=== PATIENT | female | born 1960 | race African-American/Black ===

== ENCOUNTER 2018-08-15 10:10 | Outpatient (CLI) | payer OTHER ==
--- NOTE | 2018-08-15 10:57 | MMO ---
MAMMOGRAM DIGITAL SCREENING BILATERAL: DATE: 08/15/2018. HISTORY: A 58-year-old female for routine bilateral screening mammogram. COMPARISON: 07/01/2009. TECHNIQUE: Digital mammographic views. Computer-aided detection (CAD) utilized. FINDINGS: The breasts are almost entirely fatty. There is no evidence of suspicious mass, suspicious calcifications, or architectural distortion. The re is no significant interval change since the prior mammogram. IMPRESSION: 1) BIRADS 1- Negative. 2) Recommendation: routine bilateral annual screening mammogram (unless the patient develops suspicio us clinical findings that would warrant earlier imaging follow up). BIRADS 1: Negative Routine annual screening mammography (for women over age 40) benny [] POS: ASHLEY
== END 2018-08-15 10:11 | disposition home or self-care (01) ==
LOC: SCSMAMMO 10:10
PROVIDERS: ATTEND Nurse Practitioner Family
DX: Z12.31 Encounter for screening mammogram for malignant neoplasm of breast (principal)
CPT/HCPCS: 77067